=== PATIENT | female | born 2000 | race Caucasian/White ===

== ENCOUNTER 2023-09-30 19:47 | Observation (INO) ==
[2023-09-30] MEDS ORDERED: Famotidine IV 10 MG/ML 2 ml VIAL (20 mg) ONE ×2 (19:50→19:54)
[2023-09-30] MEDS ORDERED: EPINEPHrine Anaphylaxis SYR CERTADOSE SYR KIT ONE ×2 (19:50→20:48)
[2023-09-30] MEDS ORDERED: Dexamethasone IV 4 MG/ML 5 ML VIAL (20 MG) IVPB ONE ×2 (19:53→19:54)
[2023-09-30] MEDS ORDERED: Ondansetron 4 mg VIAL 2 MG/ML 2 ml VIAL ONE (19:53)
[2023-09-30] MEDS: Dexamethasone IV 4 MG/ML VIAL 1 ml VIAL IV SLOW PU ONE (19:58)
[2023-09-30] MEDS: Ondansetron 4 mg VIAL 2 MG/ML 2 ml VIAL IV ONE ×2 (20:06→21:07)
[2023-09-30] MEDS: Lactated Ringers 1000 ml BAG 1,000 ML IV ONE ×2 (20:11→22:10)
[2023-09-30 20:13] LABS: Hemoglobin 13.3 g/dL (11.5-14.3); Mean Corpuscular Hemoglobin 27.3 pg (27-33); Mean Corpuscular Hgb Conc 33.3 g/dL (31-36); Mean Corpuscular Volume 81.9 fL (80-97); Platelet Count 432 10^3/uL (150-450); Red Blood Count 4.89 10^6/uL (3.63-4.92); Red Cell Distribution Width 12.8 % (12-17); White Blood Count 14.2 10^3/uL (3.8-11.8)
[2023-09-30] MEDS: EPINEPHrine 1 MG/ML MDV 5 MG in D5W 250 ml BAG 245 ML IV SCH (20:21)
[2023-09-30 20:51] LABS: ALT 14 U/L (7-52); AST 17 U/L (13-39); Albumin 4.3 g/dL (3.2-5.2); Albumin/Globulin Ratio 1.4 (1-3); Alkaline Phosphatase 62 U/L (35-149); Anion Gap 15 mmol/L (2-16); Blood Urea Nitrogen 15 mg/dL (6-24); CO2 Carbon Dioxide 20 mmol/L (22-32); Calcium 9.5 mg/dL (8.6-10.3); Chloride 105 mmol/L (101-111); Creatinine, Serum 1.02 mg/dL (0.51-0.95); Globulin 3.1 g/dL (2-4); Glucose 101 mg/dL (70-100); Potassium 3.9 mmol/L (3.5-5.0); Sodium 140 mmol/L (135-145); Total Bilirubin 0.2 mg/dL (0.2-1.0); Total Protein 7.4 g/dL (6.4-8.9); eGFR CKD-EPI 79.3 (>60)
[2023-09-30] MEDS ORDERED: Cetirizine 5 mg CHEW TAB PO ONE (20:53)
[2023-09-30 20:59] LABS: HCG Pregnancy < 0.60 mIU/mL
[2023-09-30] MEDS: Cetirizine 5 mg CHEW TAB PO ONE (21:13)
[2023-09-30 21:18] LABS: ABS Basophils 0.1 10^3/uL (0.0-0.1); ABS Eosinophils 0.1 10^3/uL (0.0-0.5); ABS Lymphocytes 5.7 10^3/uL (1.0-4.8); ABS Monocytes 0.9 10^3/uL (0.0-0.9); ABS Neutrophils 7.4 10^3/uL (1.5-7.6); Lymphocyte % 40.3 %
[2023-09-30] MEDS ORDERED: EPINEPHrine 1 MG/ML MDV 5 MG in D5W 250 ml BAG 245 ML IV SCH (23:10)
[2023-09-30] MEDS ORDERED: NS 0.9% 1000 ml BAG 1,000 ML IV SCH (23:30)
[2023-09-30 23:31] LABS: High Sensitivity Troponin 1 Hr 4 pg/mL (<15)
[2023-10-01 01:24] VITALS: BP 128/63
[2023-10-01] MEDS ORDERED: NF: Norethindrone/Eth Est 1.5/30NF TAB PO SCH (21:00)
== END 2023-10-01 01:15 | disposition left against medical advice (07) ==
LOC: EDHOLD 19:47 → ED 19:47 → SUATTDRO 22:43 → EDHOLD 10-01 01:24 → UNDODISOB 10-02 01:25
PROVIDERS: ADMIT Internal Medicine; ATTEND Internal Medicine